=== PATIENT | male | born 1950 | race Caucasian/White ===

== ENCOUNTER 2019-09-07 15:56 | Outpatient (CLI) | payer OTHER, SELFPAY ==
--- NOTE | ~2019-09-07 | XR_ITS ---
EXAMINATION: XR chest 2V 09/07/2019 16:22 INDICATION: Cough PROCEDURE: 2 view chest COMPARISON: No prior studies for comparison. FINDINGS: The lungs are clear. Calcified granuloma left upper lobe. The cardiomediastinal silhouette is within normal limits. There are no pleural effusions. There is no pneumothorax suspected. IMPRESSION: 1: NO ACUTE CARDIOPULMONARY DISEASE. Reviewed, dictated and finalized at location A.
[2019-09-07 16:37] LABS: Add Urine Microscopic? NO; Appearance Urine Clear (Clear); Bilirubin Urine Negative (Negative); Blood Urine Negative (Negative); Color Urine Straw (Yellow); Glucose Urine UA Negative (Negative); Ketones Urine Negative (Negative); Leukocyte Esterase Ur Negative LEU/UL (NEGATIVE); Nitrate Urine Negative (Negative); Protein Urine Negative (Negative); Specific Grav Ur 1.009 (1.001-1.035); Urobilinogen Urine Negative mg/dL (<2.0)
== END 2019-09-07 15:57 | disposition home or self-care (01) ==
PROVIDERS: PCP Internal Medicine; Visit Provider Internal Medicine
DX: R05 Cough (principal); N50.812 Left testicular pain
CPT/HCPCS: 71046; 81003

== ENCOUNTER 2022-01-01 13:41 | Outpatient (CLI) | payer OTHER, SELFPAY ==
--- NOTE | ~2022-01-01 | US_ITS ---
EXAMINATION: US scrotum doppler DATE: 01/01/2022 14:32 INDICATION: Left testicular pain TECHNIQUE: Testicular sonogram utilizing grayscale and Doppler COMPARISON: None. FINDINGS: The right testis measures 4.9 x 1.9 x 2.9 cm. The left testis measures 4.9 x 2.0 x 2.9 cm. There is normal vascular flow to both testes. The right epididymis is normal with normal vascular kate w. The left epididymis contains adjacent cysts versus spermatoceles measuring 5 mm and 4 mm. There is no varicocele or hydrocele. IMPRESSION: 1. Small cysts or spermatoceles of the left epididymis. Reviewed, dictated and finalized at location B.
== END 2022-01-01 13:42 | disposition home or self-care (01) ==
PROVIDERS: PCP Internal Medicine; Visit Provider Clinical Nurse Specialist
DX: N50.812 Left testicular pain (principal); N50.89 Other specified disorders of the male genital organs
CPT/HCPCS: 76870; 93976

== ENCOUNTER → 2023-01-21 08:13 | Outpatient (CLI) | payer OTHER, SELFPAY ==
--- NOTE | ~2023-01-21 | XR_ITS ---
Cervical Spine: AP, lateral, open-mouth views Clinical History: Pain Findings: The normal lordotic curve is maintained. The vertebral bodies and posterior elements appea r intact. There is mild degenerative disc narrowing at C5-C6 and C6-C7. Pre-vertebral soft tissues ar e unremarkable. Impression: Mild degenerative disc narrowing at C5-C6 and C6-C7. Reviewed, dictated and finalized at [facility]. Impression: Mild degenerative disc narrowing at C5-C6 and C6-C7.
--- NOTE | ~2023-01-21 | XR_ITS ---
Left Shoulder Technique: AP and axillary views were obtained. Clinical History: Pain Findings: No fracture or dislocation is seen. Osseous alignment is anatomic. There is mild degenerati ve change at the AC joint. Glenohumeral joint is intact. Soft tissues are unremarkable. Impression: Mild AC joint degenerative change. Reviewed, dictated and finalized at location . Impression: Mild AC joint degenerative change.
== END ==
PROVIDERS: PCP Internal Medicine; Visit Provider Nurse Practitioner
DX: M25.512 Pain in left shoulder (principal); M50.322 Other cervical disc degeneration at C5-C6 level; M50.823 Other cervical disc disorders at C6-C7 level
CPT/HCPCS: 72040; 73030

== ENCOUNTER 2023-09-23 11:50 | Outpatient (CLI) | payer OTHER, SELFPAY ==
--- NOTE | ~2023-09-23 | US_ITS ---
US retroperitoneal comp 09/23/2023 12:57 Procedure: Realtime transabdominal ultrasound of the kidneys and bladder. Indication: Urinary retention Comparison: No prior studies for comparison. Findings: Renal echotexture is normal bilaterally without hydronephrosis, contour deforming mass or r enal calculus. The right kidney measures 10.8 cm and left kidney measures 11.4 cm. There are right re nal cysts, largest measuring 3.4 cm. Bladder within normal limits. Prevoid volume is 1 12 cc. Postvoi d volume is 53 cc. Impression: 1: Small post void residual measuring 53 cc. 2: Right renal cyst measuring up to 3.4 cm. Reviewed, dictated and finalized at location B. Impression: 1: Small post void residual measuring 53 cc. 2: Right renal cyst measuring up to 3.4 cm.
== END 2023-09-23 11:51 ==
LOC: MICIMG 11:50
PROVIDERS: PCP Internal Medicine
DX: N28.1 Cyst of kidney, acquired (principal); R33.9 Retention of urine, unspecified
CPT/HCPCS: 76770

== ENCOUNTER 2023-11-09 09:05 | Outpatient (CLI) | payer OTHER, SELFPAY ==
--- NOTE | ~2023-11-09 | XR_ITS ---
AP and lateral views of the left hip Clinical history: Pain Findings: No acute fracture or dislocation is seen. Osseous alignment is anatomic. Left hip joint is preserved. Soft tissues are unremarkable. Impression: No significant abnormality is seen. Reviewed, dictated and finalized at location M. Impression: No significant abnormality is seen.
== END 2023-11-09 09:06 ==
PROVIDERS: PCP Nurse Practitioner; Visit Provider Nurse Practitioner
DX: M25.552 Pain in left hip (principal)
CPT/HCPCS: 73502

== ENCOUNTER 2023-12-23 15:30 | Outpatient (RCR) | payer OTHER, SELFPAY ==
--- NOTE | 2023-12-02 16:51 | OPREHPOC ---
Outpatient Therapy Plan of Care This is a Multidisciplinary Plan of Care that may contain components documented by all disciplines (PT, OT, and ST.) PT Problem 1 PT Problem #1 Knowledge Deficit PT Goal 1 Goal Otoe with HEP Target Visit 4 PT Problem 2 PT Problem #2 Impaired Range of Motion PT Goal 1 Goal Patient will demonstrate 30+ degrees of kalin hip abduction to reduce lateral hip mobility for improved stride and stabilization of pelvic girdle Target Visit 8 PT Goal 2 Goal Improve kalin hip abduction strength to 4+/5 to improve lateral stability with ADL performance Target Visit 8 PT Problem 3 PT Problem #3 Impaired Gait PT Goal 1 Goal Patient will ambulate with even stride length bilaterally with reduced to no hip clicking per patient goal Target Visit 8
--- NOTE | 2023-12-02 16:51 | PTOPEVAL1 ---
Assessment and note entered by Oj Kruger, PT Evaluation Information Assessment Status Evaluation Diagnosis Left hip pain Onset July 2023 Subjective Information Reports that he just had a left TKA in July 2023. He has been having back trouble and clicking in his left hip since. Feels most of his pain and clicking when he has been sleeping or sitting in the car. The clicking is happening when he takes a step in his lateral hip and he is concerned about possible issues. Reports that he does occasionally have pain with sleeping on his left side, but most of the time he is okay. Feel that the knee has likely been a little stiffer. Reported Pain Level Pain Score 2: Self Report Assessment PT Clinical Summary Patient presents with signs and symptoms of possible hip bursitis and sciatica following total knee replacement. Still has some swelling evident in knee and lacking flexion in comparison of R LE . 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 Plan of Care Interventions Gait Training,Hot Pack/Cold Pack,Manual Therapy, Neuro Re-education,Therapeutic Activities, Therapeutic Exercise PT Services Indicated Yes Treatment Frequency and 1-2x/week for 6 visits Duration These treatments will address the objective and functional deficits as defined above. The patient will be advanced safely and appropriately in order for the patient to progress towards his/her prior level of function. Additional exercises will be introduced and as well as a comprehensive home exercise program upon discharge, if needed, ?to ensure carryover of functional gains achieved in the clinic. This treatment plan has been reviewed and agreement upon by the patient.
--- NOTE | 2024-01-05 16:51 | PCPTNOTE ---
Patient canceled due to work and travel.
--- NOTE | 2024-02-20 08:30 | PTOPDC ---
Assessment and note entered by Mikel Ray, PT, DPT Evaluation Information Assessment Status Discharge - Pt Not Present Diagnosis Left hip pain Onset July 2023 Subjective Information Called and spoke with pt. States his hip is still popping but is not painful. Notices walking more helps. Going on a trip will follow up when he returns if needed. Assessment PT Clinical Summary Pt completed 2 visits of therapy to address this hip pain and popping. He will be discharged at this time per his request.
== END 2024-02-20 10:11 | disposition home or self-care (01) ==
LOC: ANHGOSHPT 15:30
PROVIDERS: PCP Nurse Practitioner; Visit Provider Nurse Practitioner
DX: M25.552 Pain in left hip (principal)
CPT/HCPCS: 97110; 97161; 97530

== ENCOUNTER → 2025-01-22 15:36 | Outpatient (REF) | payer OTHER, SELFPAY ==
--- NOTE | 2025-01-22 15:36 | S_PTH ---
PATIENT: Crow Garcia LOC: [facility] U#:[id number] AGE/SX: 75/M ROOM: RE01/22/[address]: Cristy Quintana MD : 1950 BED: DIS: SPEC #: [id number] RECD: 01/23/25 06:41 STATUS: XANDER REQ #: [id number] CARRILLO: 01/22/25 15:[address]: Cristy Quintana DEPT: [facility] Surgical RECD BY: Sana Colon ENTERED: 01/23/25 06:42 SP TYPE: Surgical OTHR DR: Chirag Almanza DO Tissues: A - Skin Procedures: Hematoxylin and Eosin Stain Gross and Microscopic Level 4
--- OUTSIDE RECORDS SUMMARY | 2025-01-22 15:38 | XMS_ITS | Clinical Summary ---
Author Organization [facility] [address] Address [address] [place] [address] Care Team Providers Care Preprint Analyst Name Role Phone Chirag Almanza DO Primary Care Provider +1- [phone] Allergies Active Allergy Reactions Criticality Noted Date Comments Pseudoephedrine Other (See comments) Low 01/27/2017 Took 2 hours before first episode of A-fib. Medications omeprazole (PriLOSEC) 20 mg capsule Take 1 capsule (20 mg total) by mouth 2 (two) times a day Active aspirin 81 mg enteric coated tabletIndicatio ns:prevention of thrombosis Take 81 mg by mouth daily Active fluticasone propionate (FLONASE) 50 mcg/actuation nasal spray Administer 1 spray into affected nostril(s) daily 3 Active sotaloL (BETAPACE) 80 mg tabletIndicatio ns:PAF (paroxysmal atrial fibrillation) (HCC) TAKE ONE & ONE-HALF TABLET BY MOUTH EVERY MORNING AND ONE TABLET EVERY EVENING 135 tablet 2 5 Active tadalafiL (CIALIS) 5 mg tablet Take 1 tablet (5 mg total) by mouth daily Active Active Problems Problem Noted Date Diagnosed Date Preoperative cardiovascular examination 08/17/19 24 Palpitations 08/04/2022 JOSELYN (obstructive sleep apnea) 04/07/2021 Congestion of throat 05/23/2018 Hair loss 05/23/2018 Bradycardia 01/29/2017 Idiopathic hypotension 01/29/2017 Medication monitoring encounter 01/27/2017 PAF (paroxysmal atrial fibrillation) 01/27/2017 Surgical History Surgery Date Site/Laterality Comments HAND SURGERY Bilateral Dupytren's contr FOOT SURGERY Bilateral LUNG SURGERY Medical History Medical History Date Comments Acid indigestion Atrial fibrillation (HCC) 2003 two ep isodes documented a fib, 2003 and 2006 GERD (gastroesophageal reflux disease) Arthritis Migraines Pneumonia Allergic rhinitis Sleep apnea Family History Medical History Relation Name Comments Diabetes Father Heart attack Father Heart disease Father Hypertension Father Cancer Mother Diabetes Mother Heart disease Mother Hypertension Mother Relation Name Status Comments Brother Alive Father Mother Alive Social History Tobacco Use Types Packs/Day Years Used Date Smoking Tobacco: Never Smokeless Tobacco: Never Tobacco Cessation:Counseling Given: Not Answered Alcohol Use Standard Drinks/Week Comments No 0 (1 standard drink = 0.6 oz pur e alcohol) Sex and Gender Information Value Date Recorded Sex Assigned at Not on file Legal Sex Male 10:42 AM REPORTING SPECIALIST Gender Identity Not on file Sexual Orientation Not on file Obstetrics History Last Filed Vital Signs Vital Sign Reading Time Taken Comments Blood Pressure 90/58 08/17/2024 8:08 AM REPORTING SPECIALIST Pulse 56 08/17/2024 8:08 AM REPORTING SPECIALIST Temperature - - Respiratory Rate - - Oxygen Saturation 97% 08/17/2024 8:08 AM REPORTING SPECIALIST Inhaled Oxygen Concentration - - Weight 104.3 kg (230 lb) 08/17/2024 8:08 AM REPORTING SPECIALIST Height 185.4 cm (6' 1) 08/17/2024 8:08 AM REPORTING SPECIALIST Body Mass Index 30.34 08/17/2024 8:08 AM REPORTING SPECIALIST Plan of Treatment Health Maintenance Due Date Last Done Comments Colon Cancer Screening-Colonoscopy 1950 Depression Screening 1950 Hepatitis C Screening 1950 DTaP/Tdap/Td Vaccine (1 - Tdap) 02/19/1963 Hepatitis B Screening 02/19/1970 Pneumococcal vaccine 65+ (1 of 1 - PCV) 02/19/2002 Zoster Vaccine (1 of 2) 02/19/2002 Well Visit 65+ 02/19/2017 Influenza Vaccine (#1) 2025 04/17/2017 Fall Risk Assessment 03/08/2025 03/08/2024 Insurance [facility] CIGNA Care Teams Preprint Analyst Relationship Specialty Start Date End Date Chirag Almanza DO PCP - General Internal Medicine 05/06/20
--- OUTSIDE RECORDS SUMMARY | 2025-01-22 15:38 | XMS_ITS | Clinical Summary ---
Author Organization [facility] Address [address] [place] [address] Care Team Providers Care Oncology Coordinator Name Role Phone Chirag Almanza DO Primary Care Provider [phone] [phone] Source Comments [facility],non-owned Affiliates and Associated Physician Practices is amultiple site organization consisting of ambulatory clinics and hospital sitesin [place], [place], [place] and [place]. This disclosure is being madepursuant to the Care Everywhere program and may not contain all information available regarding this patient. Last updated 18.[facility] Allergies Active Allergy Reactions Criticality Noted Date Comments Pseudoephedrine Base Other Low 01/27/2017 Took 2 hours before first episode of A-fib. Medications * Be aware that medications may not be up to date on this document. Alwaysverify current medications with the patient. sotalol (Betapace) 80 MG tablet TAKE 1 AND 1/2 TABLETS BY MOUTH EVERY MORNING AND TAKE 1 TABLET BY MOUTH EVERY EVENING 08/04/2022 Active omeprazole (PriLOSEC) 20 MG capsule Take 1 (one) capsule by mouth 2 times daily Active fluticasone propionate (Flonase) 50 MCG/ACT nasal spray [place] 1 (one) spray into each nostril once daily 12/13/2022 Active celecoxib (CeleBREX) 200 MG capsule Take 1 (one) capsule by mouth 2 times daily 60 capsule 5 05/30/2023 Active tacrolimus (Protopic) 0.03 % ointment Apply to affected area as needed Active cetirizine (ZyrTEC) 10 MG tablet Take 1 (one) tablet by mouth once daily Active oxyCODONE, immediate release, (Roxicodone) 10 MG tabletIndicatio ns:Postoperativ e pain Take 0.5 (one-half) tablet to 1 (one) tablet by mouth every 4 hours as needed for Pain (PAIN) 30 tablet 08/22/2023 Active tamsulosin (Flomax) 0.4 MG capsule Take 1 (one) capsule by mouth once daily for 7 days At the same time every day after a meal. 7 capsule 08/25/2023 Active Active Problems Problem Noted Date Diagnosed Date Primary osteoarthritis of left knee 01/03/2023 Social History Tobacco Use Types Packs/Day Years Used Date Smoking Tobacco: Never Smokeless Tobacco: Never Tobacco Cessation:Counseling Given: Not Answered Alcohol Use Standard Drinks/Week Comments Yes 0 (1 standard drink = 0.6 oz pur e alcohol) rarely AUDIT-C Answer Date Recorded Q1: How often do you have a drink containing alcohol? Never 08/22/2023 Q2: How many drinks containi ng alcohol do you have on a typical day when you are drinking? Patient does not drink Q3: How often do you have si x or more drinks on one occasion? Never 08/22/2023 Overall Financial Resource Strain (CARDIA) Answe r Date Recorded How hard is it for you to pa y for the very basics like food, housing, medical care, and heating? Not hard at all 08/23/2023 [facility] Occupat ional [facility] - Occupational Stress Questionnaire Answer Date Recorded Do you feel stress - tense, restless, nervous, or anxious, or unable to sleep at night because your mind is troubled all the time - these days? Not at all 08/23/2023 Hunger Vital Sign Answer Date Recorded Within the past 12 months, y ou worried that your food would run out before you got the money to buy more. Never true 08/23/19 24 Within the past 12 months, t he food you bought just didn't last and you didn't have money to get more. Never true 08/23/2023 PRAPARE - Transportation Answer Date Re corded In the past 12 months, has l ack of transportation kept you from medical appointments or from getting medications? No 07/29 In the past 12 months, has l ack of transportation kept you from meetings, work, or from getting things needed for daily living? No 08/23/2023 Housing Stability Vital Sign Answer Gino e Recorded In the last 12 months, was t here a time when you were not able to pay the mortgage or rent on time? No 08/23/2023 In the last 12 months, how many places have you lived? 1 08/23/2023 In the last 12 months, was t here a time when you did not have a steady place to sleep or slept in a custodial (including now)? No 08/23/2023 Sex and Gender Information Value Date Recorded Sex Assigned at Not on file Legal Sex Male 12:55 PM CDT Gender Identity Not on file Sexual Orientation Not on file Last Filed Vital Signs Vital Sign Reading Time Taken Comments Blood Pressure 123/60 08/24/2023 3:32 PM BRASS POLISHER Pulse 73 08/24/2023 3:32 PM BRASS POLISHER Temperature 36.6 C (97.9 F) 08/24/2023 3:32 PM BRASS POLISHER Respiratory Rate 15 08/24/2023 3:32 PM BRASS POLISHER Oxygen Saturation 94% 08/24/2023 3:32 PM BRASS POLISHER Inhaled Oxygen Concentration - - Weight 101.6 kg (224 lb) 08/22/2023 7:44 AM BRASS POLISHER Height 185.4 cm (6' 1) 08/22/2023 7:44 AM BRASS POLISHER s tated Body Mass Index 29.55 08/22/2023 7:44 AM BRASS POLISHER Plan of Treatment Health Maintenance Due Date Last Done Comments COLOGUARD (AGES 45-75) - COL ON CA SCREENING 1950 COLON MONITORING 1950 COLONOSCOPY - COLON CA SCREENING 1950 CT COLONOGRAPHY - COLON CA SCREENING 1950 Colorectal Cancer Screening 1950 FIT - COLON CA SCREENING 1950 FLEX SIG - COLON CA SCREENING 1950 HEPATITIS C SCREENING 02/15/1970 DTAP/TDAP/TD VACCINES (1 - Tdap) 02/19/1971 PNEUMOCOCCAL VACCINE 50+ (1 of 1 - PCV) 02/19/2002 ZOSTER VACCINE (1 of 2) 02/19/2002 COVID-19 VACCINE (1 - 2023-2 5 season) 2024 DEPRESSION SCREENING 06/27/2024 INFLUENZA VACCINE (#1) 2025 SCREENING FOR DIABETES 08/17/2026 , 07/22/2023, 07/29/2020 Respiratory Syncytial Virus (RSV) Vaccine Pt: or over 60 yrs (1 - 1-dose 75+ series) 02/19/2027 LIPID TESTING 08/17/2028 08/17/2023, 07/29/2020 HEPATITIS B VACCINE Aged Out No longe r eligible based on patient's age to complete this topic HIB VACCINE Aged Out No longer eligi ble based on patient's age to complete this topic HPV VACCINE Aged Out No longer eligi ble based on patient's age to complete this topic MENINGOCOCCAL (Group B) VACCINE SHARED DECISION-MAKING Aged Out No longer eligible based on patient's age to complete this topic MENINGOCOCCAL GROUPS A/C/Y/W VACCINE Aged Out No longer eligible b ased on patient's age to complete this topic Medical Devices Implanted Type Area Final Assembler Boat Device Identifier Shelf Expiration Date Model / Serial / Lot Cmnt Bone Plc R 40gm Grn Implanted:Qty: 2 on 08/22/2023 by Grey Sylvester MD at [facility] Left: Knee [employer] 12/24/2025 [id number] / / [id number] Tray Tib 83mm Kn Cocr I Beam Implanted:Qty: 1 on 08/22/2023 by Grey Sylvester MD at [facility] Left: Knee [employer] 03/11/2033 [id number] / / [id number] Cmpnt Fem Kn Lt Cr Cmnt Prm Vngrd Intlk 75mm Implanted:Qty: 1 on 08/22/2023 by Grey Sylvester MD at [facility] Left: Knee [employer] 04/25/2033 [id number] / / [id number] Cmpnt Ptlr Std 31mm 3 Pg Kn Ser A Implanted:Qty: 1 on 08/22/2023 by Grey Sylvester MD at [facility] Left: Knee [employer] 12/24/2027 [id number] / / [id number] Brng [id number] Vngrd Arcm Kn Ant Stab Implanted:Qty: 1 on 08/22/2023 by Grey Sylvester MD at [facility] Left: Knee [employer] 05/17/2028 [id number] / / [id number] Procedures Procedure Name Priority Date/Time Associated Diagnosis Comments COMPREHENSIVE METABOLIC PANEL Routine 07/22/2023 7:27 AM [facility] Pre-op evaluation from Last 3 Months or Most Recently Relevant to Health Maintenance Results * (ABNORMAL) COMPREHENSIVE METABOLIC PANEL (07/22/2023 7:27 AM BRASS POLISHER) [facility] Glucose 99 70 - 105 mg/dL 07/22/2023 7:54 AM [facility] Sodium 139 136 - 145 mmol/L 07/22/2023 7:54 AM [facility] Potassium 4.6 3.5 - 5.1 mmol/L 07/22/2023 7:54 AM [facility] Chloride 105 98 - 107 mmol/L 07/22/2023 7:54 AM [facility] CO2 25 22 - 29 mmol/L 07/22/2023 7:54 AM [facility] Calcium 9.1 8.4 - 10.4 mg/dL 07/22/2023 7:54 AM [facility] Anion Gap 9 6 - 16 mmol/L 07/22/2023 7:54 AM [facility] BUN 13 7 - 26 mg/dL 07/22/2023 7:54 AM [facility] Creatinine 1.00 0.72 - 1.25 mg/dL 07/22/2023 7:54 AM [facility] Alkaline Phosphatase 79 40 - 150 U/L 07/22/2023 7:54 AM [facility] ALT 20 0 - 55 U/L 07/22/2023 7:54 AM [facility] AST 19 5 - 34 U/L 07/22/2023 7:54 AM [facility] Protein Total 6.8 6.4 - 8.3 gm/dL 07/22/2023 7:54 AM [facility] Albumin 3.8 3.4 - 5.0 gm/dL 07/22/2023 7:54 AM [facility] Bilirubin Total 0.6 0.2 - 1.2 mg/dL 07/22/2023 7:54 AM [facility] eGFR by CKD-EPI 80(L) >=90 mL/min/1.7 3 m2 07/22/2023 7:54 AM BRASS POLISHER [facility] Blood BLOOD SPECIMEN / Unknown Venipuncture / Unknown 07/22/2023 7:27 AM BRASS POLISHER 07/22/2023 7:36 AM BRASS POLISHER Lorin Graff [employer]ATE[employer] INTERN-JOURNEYMAN POWERHOUSE OPERATOR LAB - CHEMISTRY ORDERABLE S Final Result [facility] [address] [place] [address] from Last 3 Months or Most Recently Relevant to Health Maintenance Insurance [facility] MEDICARE Advance Directives * Full Code (Latest Code Status on File) Date Activated Date Inactivated Comments 08/22/2023 1:00 PM 08/24/2023 8:06 PM Care Teams Oncology Coordinator Relationship Specialty Start Date End Date Chirag Almanza DO PCP - General Internal Medicine 12/30/22
--- OUTSIDE RECORDS SUMMARY | 2025-01-22 15:38 | XMS_ITS | Referral Summary ---
Author Organization [facility] [place] [address] Address [address] [place] [address] Care Team Providers Care Irrigator Head Name Role Phone Chirag Almanza DO Primary Care Provider +1- [phone] Allergies Active Allergy Reactions Criticality Noted Date [...] encounter 01/27/2017 PAF (paroxysmal atrial fibrillation) 01/27/2017 Social History Tobacco Use Types Packs/Day Years Used Date Smoking Tobacco: Never Smokeless Tobacco: Never Tobacco Cessation:Counseling Given: Not Answered Alcohol Use Standard Drinks/Week Comments No 0 (1 standard drink = 0.6 oz pur e alcohol) Sex and Gender Information Value Date Recorded Sex Assigned at Not on file Legal Sex Male 10:42 AM MARINE RIGGER Gender Identity Not on file Sexual Orientation Not on file Last Filed Vital Signs Vital Sign Reading Time Taken Comments Blood Pressure 90/58 08/17/2024 8:08 AM MARINE RIGGER Pulse 56 08/17/2024 8:08 AM MARINE RIGGER Temperature - - Respiratory Rate - - Oxygen Saturation 97% 08/17/2024 8:08 AM MARINE RIGGER Inhaled Oxygen Concentration - - Weight 104.3 kg (230 lb) 08/17/2024 8:08 AM MARINE RIGGER Height 185.4 cm (6' 1) 08/17/2024 8:08 AM MARINE RIGGER Body Mass Index 30.34 08/17/2024 8:08 AM MARINE RIGGER Plan of Treatment Not on file Insurance CIGNA CIGNA Care Teams Irrigator Head Relationship Specialty Start Date End Date Chirag Almanza DO PCP - General Internal Medicine 05/06/20
== END ==
LOC: ANHLAB 15:36
PROVIDERS: PCP Internal Medicine; Visit Provider Plastic Surgery
DX: D48.5 Neoplasm of uncertain behavior of skin (principal); L90.5 Scar conditions and fibrosis of skin
CPT/HCPCS: 88305

== ENCOUNTER 2025-06-13 00:31 | Day surgery (SDC) | payer OTHER, SELFPAY ==
[2025-05-30 13:31] VITALS: BMI 31.1
--- OUTSIDE RECORDS SUMMARY | 2025-06-13 00:34 | XMS_ITS | Clinical Summary ---
Author Organization [facility] [place] [address] Address [address] [place] [address] Care Team Providers Care Guide Changer Name Role Phone Chirag Almanza DO Primary Care Provider +1- [phone] Allergies Active Allergy Reactions Criticality Noted Date [...] spray into affected nostril(s) daily 3 Active tadalafiL (CIALIS) 5 mg tablet Take 1 tablet (5 mg total) by mouth daily Active sotaloL (BETAPACE) 80 mg tabletIndicatio ns:PAF (paroxysmal atrial fibrillation) TAKE ONE AND ONE-HALF TABLETS EVERY MORNING AND 1 TABLET EVERY EVENING 225 tablet 1 5 Active Active Problems Problem Noted Date Diagnosed [...] on file Legal Sex Male 10:42 AM MUSIC THERAPY SPECIALIST Gender Identity Not on file Sexual Orientation Not on file Last Filed Vital Signs Vital Sign Reading Time Taken Comments Blood Pressure 90/58 08/17/2024 8:08 AM MUSIC THERAPY SPECIALIST Pulse 56 08/17/2024 8:08 AM MUSIC THERAPY SPECIALIST Temperature - - Respiratory Rate - - Oxygen Saturation 97% 08/17/2024 8:08 AM MUSIC THERAPY SPECIALIST Inhaled Oxygen Concentration - - Weight 104.3 kg (230 lb) 08/17/2024 8:08 AM MUSIC THERAPY SPECIALIST Height 185.4 cm (6' 1) 08/17/2024 8:08 AM MUSIC THERAPY SPECIALIST Body Mass Index 30.34 08/17/2024 8:08 AM MUSIC THERAPY SPECIALIST Plan of Treatment Health Maintenance Due Date Last Done Comments Colon Cancer Screening-Colonoscopy 1950 Depression Screening 1950 Hepatitis C Screening 1950 DTaP/Tdap/Td Vaccine (1 - Tdap) 02/19/1963 Hepatitis B Screening 02/19/1970 Pneumococcal vaccine 65+ (1 of 1 - PCV) 02/19/2002 Zoster Vaccine (1 of 2) 02/19/2002 Well Visit 65+ 02/19/2017 Influenza Vaccine (#1) 2025 04/17/2017 Fall Risk Assessment 03/08/2025 03/08/2024 Insurance [facility] CIGNA Care Teams Guide Changer Relationship Specialty Start Date End Date Chirag Almanza DO PCP - General Internal Medicine 05/06/20
--- OUTSIDE RECORDS SUMMARY | 2025-06-13 00:35 | XMS_ITS | Clinical Summary ---
Author Organization [facility] [employer] Address [address] [place] [address] Care Team Providers Care Caser In Name Role Phone Chirag Almanza DO Primary Care Provider [phone] Source Comments [facility] [employer],non-owned Affiliates and Associated Physician Practices is amultiple site organization consisting of ambulatory clinics and hospital sitesin [place], [place], [place]. This disclosure is being madepursuant to the Care Everywhere program and may not contain all information available regarding this patient. Last updated 18.[facility] [employer] Allergies Active Allergy Reactions Criticality Noted Date [...] fluticasone propionate (Flonase) 50 MCG/ACT nasal spray [place] 1 (one) spray into each nostril once [...] and heating? Not hard at all 08/23/2023 [facility] - Occupational Stress [...] place to sleep or slept in a [facility] (including now)? No 08/23/2023 Sex and Gender Information Value Date Recorded Sex Assigned at Not on file Legal Sex Male 12:55 PM CDT Gender Identity Not on file Sexual Orientation Not on file Last Filed Vital Signs Vital Sign Reading Time Taken Comments Blood Pressure 123/60 08/24/2023 3:32 PM EXERCISE EQUIPMENT REPAIR TECHNICIAN Pulse 73 08/24/2023 3:32 PM EXERCISE EQUIPMENT REPAIR TECHNICIAN Temperature 36.6 C (97.9 F) 08/24/2023 3:32 PM EXERCISE EQUIPMENT REPAIR TECHNICIAN Respiratory Rate 15 08/24/2023 3:32 PM EXERCISE EQUIPMENT REPAIR TECHNICIAN Oxygen Saturation 94% 08/24/2023 3:32 PM EXERCISE EQUIPMENT REPAIR TECHNICIAN Inhaled Oxygen Concentration - - Weight 101.6 kg (224 lb) 08/22/2023 7:44 AM EXERCISE EQUIPMENT REPAIR TECHNICIAN Height 185.4 cm (6' 1) 08/22/2023 7:44 AM EXERCISE EQUIPMENT REPAIR TECHNICIAN s tated Body Mass Index 29.55 08/22/2023 7:44 AM EXERCISE EQUIPMENT REPAIR TECHNICIAN Plan of Treatment Health Maintenance Due Date Last Done Comments COLOGUARD (AGES 45-75) - COL ON CA SCREENING 1950 COLON MONITORING 1950 COLONOSCOPY - COLON CA SCREENING 1950 CT COLONOGRAPHY - COLON CA SCREENING 1950 Colorectal Cancer Screening 1950 FIT - COLON CA SCREENING 1950 FLEX SIG - COLON CA SCREENING 1950 LIPID TESTING 1950 HEPATITIS C SCREENING 02/15/1970 DTAP/TDAP/TD VACCINES (1 - Tdap) 02/19/1971 PNEUMOCOCCAL VACCINE 50+ (1 of 1 - PCV) 02/19/2002 ZOSTER VACCINE (1 of 2) 02/19/2002 DEPRESSION SCREENING 06/27/2024 COVID-19 VACCINE (1 - 2024-2 6 season) 2025 INFLUENZA VACCINE (#1) 2025 SCREENING FOR DIABETES 07/22/2026 07/22/2023 Respiratory Syncytial Virus (RSV) Vaccine Pt: or over 60 yrs (1 - 1-dose 75+ series) 02/19/2027 HEPATITIS B VACCINE Aged Out No longe r eligible based on patient's age to complete this topic HIB VACCINE Aged Out No longer eligi ble based on patient's age to complete this topic HPV VACCINE Aged Out No longer eligi ble based on patient's age to complete this topic MENINGOCOCCAL (Group B) VACC INE SHARED DECISION-MAKING Aged Out No longer eligibl e based on patient's age to complete this topic MENINGOCOCCAL GROUPS A/C/Y/W VACCINE Aged Out No longer eligible b ased on patient's age to complete this topic Medical Devices Implanted Type Area Drawing Tender Device Identifier Shelf Expiration Date Model / Serial / Lot Cmnt Bone Plc R 40gm Grn Implanted:Qty: 2 on 08/22/2023 by Grey Sylvester MD at [facility] Left: Knee [employer] 12/24/2025 [id number] / / [id number] Tray Tib 83mm Kn Cocr I Beam Implanted:Qty: 1 on 08/22/2023 by Grey Sylvester MD at [facility] Left: [employer]nee [employer] 03/11/2033 [id number] / / [id number] Cmpnt Fem Kn Lt Cr Cmnt Prm Vngrd Intlk 75mm Implanted:Qty: 1 on 08/22/2023 by Grey Sylvester MD at [facility] Left: [employer] 04/25/2033 [id number] / / [id number] Cmpnt Ptlr Std 31mm 3 Pg Kn Ser A Implanted:Qty: 1 on 08/22/2023 by Grey Sylvester MD at [facility] Left: K[employer] 12/24/2027 [id number] / / [id number] Brng [id number] Vngrd Arcm Kn Ant Stab Implanted:Qty: 1 on 08/22/2023 by Grey Sylvester MD at [facility] Left: [employer] 05/17/2028 [id number] / / [id number] Procedures Procedure Name Priority Date/Time Associated Diagnosis Comments COMPREHENSIVE METABOLIC PANEL Routine 07/22/2023 7:27 AM [facility] Pre-op evaluation from Last 3 Months or Most Recently Relevant to Health Maintenance Results * (ABNORMAL) COMPREHENSIVE METABOLIC PANEL (07/22/2023 7:27 AM EXERCISE EQUIPMENT REPAIR TECHNICIAN) Glucose 99 70 - 105 mg/dL 07/22/2023 7:54 AM [facility] Sodium 139 136 - 145 mmol/L 07/22/2023 7:54 AM [facility] Potassium 4.6 3.5 - 5.1 mmol/L 07/22/2023 7:54 AM [facility] Chloride 105 98 - 107 mmol/L 07/22/2023 7:54 AM [facility] CO2 25 22 - 29 mmol/L 07/22/2023 7:54 AM [facility] Calcium 9.1 8.4 - 10.4 mg/dL 07/22/2023 7:54 AM [facility] Anion Gap 9 6 - 16 mmol/L 07/22/2023 7:54 AM [facility] BUN 13 7 - 26 mg/dL 07/22/2023 7:54 AM [facility] Creatinine 1.00 0.72 - 1.25 mg/dL 07/22/2023 7:54 AM [facility] Alkaline Phosphatase 79 40 - 150 U/L 07/22/2023 7:54 AM [facility] ALT 20 0 - 55 U/L 07/22/2023 7:54 AM [facility] AST 19 5 - 34 U/L 07/22/2023 7:54 AM [facility] Protein Total 6.8 6.4 - 8.3 gm/dL 07/22/2023 7:54 AM [facility] Albumin 3.8 3.4 - 5.0 gm/dL 07/22/2023 7:54 AM [facility] Bilirubin Total 0.6 0.2 - 1.2 mg/dL 07/22/2023 7:54 AM [facility] eGFR by CKD-EPI 80(L) >=90 mL/min/1.7 3 m2 07/22/2023 7:54 AM EXERCISE EQUIPMENT REPAIR TECHNICIAN [facility] Blood BLOOD SPECIMEN / Unknown Venipuncture / Unknown 07/22/2023 7:27 AM EXERCISE EQUIPMENT REPAIR TECHNICIAN 07/22/2023 7:36 AM EXERCISE EQUIPMENT REPAIR TECHNICIAN Lorin Sadler [employer] 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
[2025-06-13 13:10] VITALS: BP 118/69; PULSE 50; RESP 18; TEMP 36.3; O2SAT 99
[2025-06-13] MEDS: SIMETHICONE ORAL SUSPENSION 20 MG/0.3 ML 30 ML BOTTLE 1.8 ML PO (13:16)
--- NOTE | 2025-06-13 13:16 | WPDANESEPPF ---
Anes - Initial Pre Proc Eval Procedure: Operation Date: 06/13/25 14:15 Proposed Procedures p EGD & Screening Colonoscopy - Tom Tinoco MD Date/Time: 06/13/25 13:16 Surgeon: Tom Tinoco MD Pre Op Diagnosis: Encounter for screening for malignant neoplasm of Patient Data Age: 75 Gender: M Height: 1.85 m Weight: 102.7 kg Last Vital Signs Temp 97.4 F L 06/13/25 13:10 Pulse 50 L 06/13/25 13:10 Resp 18 06/13/25 13:10 BP 118/69 06/13/25 13:10 Pulse Ox 99 06/13/25 13:10 O2 Del Method Room Air 06/13/25 13:10 Allergies Allergy/AdvReac Type Severity Reaction Status Date / Time pseudoephedrine Allergy Unknown a-fib Verified 06/13/25 13:08 QT prolongation medication AdvReac Severe Other Uncoded 05/20/25 22:44 Home Medications ?Medication ?Instructions ?Recorded ?Confirmed ?Type sotalol 80 mg tablet 80 mg PO BID 09/04/19 06/13/25 History tamsulosin 0.4 mg capsule 0.4 mg PO DAILY 02/05/25 06/13/25 History omeprazole 20 mg capsule,delayed 20 mg PO BID #180 caps 04/17/25 06/13/25 Rx release aspirin 81 mg chewable tablet 81 mg PO DAILY 05/17/25 06/13/25 History fluticasone propionate 50 See Rx Instructions .Route 06/11/25 06/13/25 Rx mcg/actuation nasal .COMPLEX #16 grams spray,suspension Patient hx anesthesia problems: none Family hx anesthesia problems: none Results Review: All pre-operative results and documents have been reviewed as part of the pre-operative evaluation. [facility] Past Medical History Medical History Overweight Genital herpes in men Atrial fibrillation Collapse, lung GERD (gastroesophageal reflux disease) Arthritis Sleep apnea IBS (irritable bowel syndrome) Allergies Surgical History Surgical History History of left knee replacement H/O foot surgery H/O hand surgery Family History Family History Father Diabetes mellitus Hypertension Acute myocardial infarction Sibling Hypertension Kidney failure brother Mother Diabetes mellitus Hypertension Cancer Heart disease Grandparent Diabetes mellitus Social History Social History Social History: Caffeine daily Smoking status: Never smoker Second hand tobacco smoke exposure: No Alcohol intake: current Alcohol use details: Rarely Substance use: never Lack of Transportation: No Lack of Food: Never True Concerned About Future Housing: Decline to Answer Difficulty Paying Gas/Electric Bills: Decline to Answer Difficulty Paying for Meds: Decline to Answer Currently Unemployed: Decline to Answer Education: Master's Degree or Higher Difficulty w/ Childcare or Family Care: Decline to Answer Living arrangements: with family Spiritual care concerns: No Anes - Eval Final PreProcedure Day of Procedure 06/13/25 13:16 Patient weight: obese Lungs: normal air movement Airway: Mallampati scale class II Neurological: alert and oriented Last oral intake: >/= 8 hours ASA classification: III Emergent: no Anesthetic plan: proceed Anesthesia type and monitoring: general GIVS and standard monitoring Results Review: All pre-operative results and documents have been reviewed as part of the pre-operative evaluation. JOSELYN but no CPAP, BMI 30, pt active without cp or sob. Informed Consent: The patient's anesthetic plan and its attendant risks and benefits were discussed with the patient/family/POA. Questions were solicited and answers provided to the satisfaction of the patient/family/POA.
[2025-06-13] MEDS: LACTATED RINGERS 1,000 ML 150 ML IV CONT (13:23)
--- NOTE | 2025-06-13 13:59 | PM.IMHP2 ---
H&P: HPI History of Present Illness Date/Time: 06/13/25 13:59 Chief Complaint: GERD-screening colonoscopy Narrative: This patient is suffering from GERD for more than 40 years, partially controlled with omeprazole which he takes twice a day. Denies dysphagia or unintentional weight loss. In addition he is here for screening colonoscopy. His last screening colonoscopy was more than 12 years ago. Review of Systems Review of Systems: All systems reviewed & are unremarkable except as noted in HPI and below PMFSH Past Medical History Medical History Overweight Genital herpes in men Atrial fibrillation Collapse, lung GERD (gastroesophageal reflux disease) Arthritis Sleep apnea IBS (irritable bowel syndrome) Allergies Surgical History Surgical History History of left knee replacement H/O foot surgery H/O hand surgery Family History Family History Father Diabetes mellitus Hypertension Acute myocardial infarction Sibling Hypertension Kidney failure brother Mother Diabetes mellitus Hypertension Cancer Heart disease Grandparent Diabetes mellitus Social History Social History Social History: Caffeine daily Smoking status: Never smoker Second hand tobacco smoke exposure: No Alcohol intake: current Alcohol use details: Rarely Substance use: never Lack of Transportation: No Lack of Food: Never True Concerned About Future Housing: Decline to Answer Difficulty Paying Gas/Electric Bills: Decline to Answer Difficulty Paying for Meds: Decline to Answer Currently Unemployed: Decline to Answer Education: Master's Degree or Higher Difficulty w/ Childcare or Family Care: Decline to Answer Living arrangements: with family Spiritual care concerns: No Meds Home Medications and Allergies Home Medications ?Medication ?Instructions ?Recorded ?Confirmed ?Type sotalol 80 mg tablet 80 mg PO BID 09/04/19 06/13/25 History tamsulosin 0.4 mg capsule 0.4 mg PO DAILY 02/05/25 06/13/25 History omeprazole 20 mg capsule,delayed 20 mg PO BID #180 caps 04/17/25 06/13/25 Rx release aspirin 81 mg chewable tablet 81 mg PO DAILY 05/17/25 06/13/25 History fluticasone propionate 50 See Rx Instructions .Route 06/11/25 06/13/25 Rx mcg/actuation nasal .COMPLEX #16 grams spray,suspension Allergies Allergy/AdvReac Type Severity Reaction Status Date / Time pseudoephedrine Allergy Unknown a-fib Verified 06/13/25 13:08 QT prolongation medication AdvReac Severe Other Uncoded 05/20/25 22:44 Vital Signs Vital Signs - 24 hr 06/13/25 13:10 Temperature 97.4 F L Pulse Rate 50 L Respiratory Rate 18 Blood Pressure 118/69 Pulse Oximetry 99 Oxygen Delivery Room Air Exam Const: General: cooperative and healthy appearing Resp: Effort & Inspection: normal respiratory effort and able to speak in complete sentences Auscultation: clear to auscultation bilaterally Cardio: Rate: regular rate Rhythm: regular rhythm GI: Inspection: normal to inspection GI Palp: No No hepatosplenomegaly present Auscultation: normal bowel sounds Rectal Exam: deferred Skin: General skin exam: normal color Psych: Appearance: grossly normal Mental Status: mental status grossly normal Assessment and Plan Assessment and plan (1) Colon cancer screening: Code(s): Z12.11 - Encounter for screening for malignant neoplasm of colon Status: Acute Assessment and Plan: The patient is deemed a good candidate for the procedures. Consent signed. Will proceed. (2) GERD (gastroesophageal reflux disease): Qualifiers: Esophagitis presence: without esophagitis Qualified Code(s): K21.9 - Gastro-esophageal reflux disease without esophagitis Code(s): K21.9 - Gastro-esophageal reflux disease without esophagitis Status: Acute Prior Studies I have reviewed the following patient records and this information was taken into consideration when formulating the assessment and plan.: previous labs, previous ER visits, previous hospitalizations and previous clinic visits
--- NOTE | 2025-06-13 14:11 | S_PTH ---
PATIENT: Crow Garcia LOC: [facility] U#:[id number] AGE/SX: 75/M ROOM: RE06/13/[address]: Tom Tinoco MD : 1950 BED: DIS: 06/13/2025 SPEC #: [id number] RECD: 06/14/25 09:10 STATUS: [facility]UER #: [id number] CARRILLO: 06/13/25 14:[address]: Tom Tinoco DEPT: [facility] Surgical RECD BY: Sana Colon ENTERED: 06/14/25 09:10 SP TYPE: Surgical OTHR DR: Jailyn Tinsley, ADALBERTO Tissues: A - Gastric Biopsy B - Gastric Biopsy C - Colon Polypectomy D - Colon Polypectomy E - Colon Polypectomy Procedures: Hematoxylin and Eosin Stain Gross and Microscopic Level 4 H.Pylori
--- NOTE | 2025-06-13 14:15 | SUR.OPER ---
EGD END TIME 1410 COLONOSCOPY START TIME 1413
[2025-06-13 14:32] VITALS: BP 101/59; PULSE 58; RESP 18; O2SAT 100
[2025-06-13 14:42] VITALS: BP 109/69; PULSE 66; RESP 20; O2SAT 100
[2025-06-13 14:52] VITALS: BP 115/68; PULSE 57; RESP 18; O2SAT 100
== END 2025-06-13 15:12 | disposition home or self-care (01) ==
PROVIDERS: Visit Provider Internal Medicine Gastroenterology
PROC: 0DJ08ZZ Inspection of Upper Intestinal Tract, Via Natural or Artificial Opening Endoscopic (ICD-10-PCS; CPT 45378; principal; 2025-06-13 14:15)
DX: Z12.11 Encounter for screening for malignant neoplasm of colon (principal); D12.3 Benign neoplasm of transverse colon; D12.0 Benign neoplasm of cecum; K21.9 Gastro-esophageal reflux disease without esophagitis; K29.50 Unspecified chronic gastritis without bleeding; K64.8 Other hemorrhoids; K57.30 Diverticulosis of large intestine without perforation or abscess without bleeding; I48.91 Unspecified atrial fibrillation; K58.9 Irritable bowel syndrome, unspecified; G47.33 Obstructive sleep apnea (adult) (pediatric); M19.90 Unspecified osteoarthritis, unspecified site; E66.9 Obesity, unspecified; Z68.29 Body mass index [BMI] 29.0-29.9, adult; Z79.82 Long term (current) use of aspirin; Z98.890 Other specified postprocedural states; Z80.9 Family history of malignant neoplasm, unspecified; Z82.49 Family history of ischemic heart disease and other diseases of the circulatory system
CPT/HCPCS: 43239; 45385; 88305; 88342; J2704; J7120